=== PATIENT | female | born 1960 | race African-American/Black ===

== ENCOUNTER 2020-01-14 10:19 | Day surgery (SDC) | payer BC ==
[2020-01-11 14:08] VITALS: BMI 30.9
[~2020-01-14 10:19] MED LIST: EPHEDRINE 25 MG/5 ML SYRINGE ONE; PROPOFOL 200 MG/20 ML VIAL ONE
--- NOTE | 2020-01-14 12:03 | MRI ---
MR the abdomen with and without IV contrast INDICATION: Elevated alpha-fetoprotein COMPARISON: CT of the abdomen and pelvis from prior radiology associates dated February 07, 2017. TECHNIQUE: Coronal T2, axial T2 fat sat, in and out of phase axial T1, axial FASE and dynamic pre and postcontrast images in the axial plane were obtained of the abdomen. A delayed phase coronal T1 fat sat series was also performed. 15 cc of MultiHance was utilized for the examination. FINDINGS: Liver: No suspicious signal abnormality or region of abnormal enhancement is demonstrated. There is a 9 mm x 1 cm T2 hyperintense, T1 hypointense, nonenhancing cysts within the right hepatic lobe. Gallbladder: Normal appearing. The visualized intrahepatic and extra hepatic biliary ducts appear wit hin normal limits. The common bile measured 3.2 mm. Pancreas: Normal appearing. Adrenal glands: Normal appearing. Spleen: Normal in size measuring 10 cm in length. Kidneys: There are small subcentimeter cyst seen within the right kidney. The left kidney is normal-a ppearing. No hydronephrosis is demonstrated. Retroperitoneum: No lymphadenopathy is evident. Appropriate flow void is seen within the abdominal ao rta. Bone: No suspicious signal abnormality is seen within the visualized bone marrow. Lung bases: There is bibasilar atelectasis. IMPRESSION: 1. No suspicious signal abnormality or enhancement seen within the liver. Small right hepatic lobe cy st. 2. Small subcentimeter cysts within the right kidney.
== END 2020-01-14 13:15 | disposition home or self-care (01) ==
LOC: SDC/OP 10:19
PROVIDERS: ATTEND Internal Medicine Gastroenterology
DX: N28.1 Cyst of kidney, acquired (principal); Z91.011 Allergy to milk products; Z91.013 Allergy to seafood; Z91.018 Allergy to other foods
CPT/HCPCS: 74183; 82565; J2704

== ENCOUNTER 2022-03-22 07:59 | Outpatient (CLI) | payer BC | END 2022-03-22 08:00 | disposition home or self-care (01) | LOC: BICMAMMO 07:59 | PROVIDERS: ATTEND Family Medicine | DX: M81.0 Age-related osteoporosis without current pathological fracture (principal); M85.89 Other specified disorders of bone density and structure, multiple sites | CPT/HCPCS: 77080 ==